=== PATIENT | female | born 1990 | race Caucasian/White ===

== ENCOUNTER → 2017-02-04 | Outpatient (CLI) | payer BC | LOC: MW.CHOBGYN 11:32 | PROVIDERS: ATTEND Advanced Practice Midwife | DX: Z34.90 Encounter for supervision of normal pregnancy, unspecified, unspecified trimester (principal) | CPT/HCPCS: 36415; 80305; 82105; 82677; 84702; 86336 ==

== ENCOUNTER → 2017-04-02 | Outpatient (CLI) | payer BC | LOC: MW.CHOBGYN 09:00 | PROVIDERS: ATTEND Advanced Practice Midwife | DX: Z34.90 Encounter for supervision of normal pregnancy, unspecified, unspecified trimester (principal) | CPT/HCPCS: 36415; 82950; 85027; 86850 ==

== ENCOUNTER → 2017-04-06 | Outpatient (CLI) | payer BC | LOC: MW.CHOBGYN 08:18 | PROVIDERS: ATTEND Advanced Practice Midwife | DX: O99.810 Abnormal glucose complicating pregnancy (principal) | CPT/HCPCS: 36415; 82951 ==

== ENCOUNTER 2017-06-27 18:52 | Inpatient (IN) | payer BC ==
[2017-06-27] MEDS ORDERED: Methylergonovine 0.2 MG/1 ML Amp IM PRN (21:48)
[2017-06-27] MEDS ORDERED: Sodium Chloride 0.9% 10 ML Syringe FLUSH PRN (21:48)
[2017-06-27] MEDS ORDERED: Sodium Chloride 0.9% 2.5 ML Syringe FLUSH PRN (21:48)
[2017-06-27] MEDS ORDERED: Lidocaine 1% 50 ML MDV INJECT PRN (21:48)
[2017-06-27] MEDS ORDERED: Terbutaline 1 MG/ML SDV SUBCUT PRN (21:48)
[2017-06-27] MEDS ORDERED: Misoprostol 200 MCG Tab PO PRN (21:48)
[2017-06-27] MEDS ORDERED: Water For Irrigation,Sterile 1,000 ML Container IRR PRN (21:48)
[2017-06-27] MEDS ORDERED: Butorphanol 1 MG/ML SDV IVPUSH PRN (21:48)
[2017-06-27] MEDS ORDERED: Carboprost Tromethamine 250 MCG/1 ML Amp IM PRN (21:48)
[2017-06-27] MEDS ORDERED: Nalbuphine 10 MG/1 ML Vial IVPUSH PRN (21:48)
[2017-06-27] MEDS ORDERED: Oxytocin/Lactated Ringers 30 UNIT/500 ML BAG IV SCH ×2 (22:00)
[2017-06-27] MEDS ORDERED: Lactated Ringers 1,000 ML IV SCH (22:00)
--- NOTE | 2017-06-28 01:28 | PCM.LDHP ---
L&D History of Present Illness - General Date of Service: 06/28/17 Admit Problem/Dx: Patient Status Order with Admit Dx/Problem 06/27/17 21:49 Patient Status [ADT] Routine Admission Diagnosis/Problem Admission Diagnosis/Problem 06/28/17 01:23 26 yo EDC 07/02/17 39 3/7wks, A+, RI, GBS neg, PCN and Latex allergies. For active labor Source of Information: Patient History Limitations: Reports: No Limitations - History of Present Illness Improves with: Reports: None Worsens with: Reports: None Associated Symptoms: Reports: N - Related Data Allergies/Adverse Reactions: Allergies Allergy/AdvReac Type Severity Reaction Status Date / Time latex Allergy Itching Verified 05/19/17 09:23 Penicillins Allergy Hives Verified 05/19/17 09:23 Past Medical History - Past Health History Medical/Surgical History: Denies Medical/Surgical History [employer] History: Reports: , Spontaneous Social & Family History - Family History Family Medical History: Noncontributory - Tobacco Use Smoking Status *Q: Never Smoker Second Hand Smoke Exposure: No - Caffeine Use Caffeine Use: Reports: Coffee - Recreational Drug Use Recreational Drug Use: No H&P Review of Systems - Review of Systems: Review Of Systems: See Below General: Reports: No Symptoms HEENT: Reports: No Symptoms Pulmonary: Reports: No Symptoms Cardiovascular: Reports: No Symptoms Gastrointestinal: Reports: No Symptoms Genitourinary: Reports: No Symptoms Musculoskeletal: Reports: No Symptoms Skin: Reports: No Symptoms Psychiatric: Reports: No Symptoms Neurological: Reports: No Symptoms Hematologic/Lymphatic: Reports: No Symptoms Immunologic: Reports: No Symptoms L&D Exam - Exam Exam: See Below - Vital Signs Weight: 106.141 kg - Exam General: Alert, Cooperative HEENT: Hearing Intact Lungs: Normal Respiratory Effort GI/Abdominal Exam: Soft, Non-Tender, No Organomegaly, No Distention Rectal Exam: Deferred Genitourinary: Cervical dilitation Back Exam: Full Range of Motion Extremities: Normal Range of Motion, Non-Tender, No Pedal Edema, Normal Capillary Refill Skin: Warm, Dry, Intact Neurological: Cranial Nerves Intact Psychiatric: Alert, Normal Affect, Normal Mood - Patient Data Lab Results Last 24 hrs: Laboratory Results - last 24 hr 06/27/17 06/27/17 06/27/17 Range/Units 22:15 22:15 22:17 WBC 12.33 H (4.0-11.0) K/uL RBC 4.48 (4.30-5.90) M/uL Hgb 12.7 (12.0-16.0) g/dL Hct 38.1 (36.0-46.0) % MCV 85.0 (80.0-98.0) fL MCH 28.3 (27.0-32.0) pg MCHC 33.3 (31.0-37.0) g/dL RDW Std Deviation 41.5 (28.0-62.0) fl RDW Coeff of Robert 14 (11.0-15.0) % Plt Count 209 (150-400) K/uL MPV 11.70 (7.40-12.00) fL Nucleated RBC % 0.0 /100WBC Nucleated RBCs # 0 K/uL POC Glucose 77 (60-110) mg/dL Blood Type A POSITIVE Antibody Screen NEGATIVE Result Diagrams: 06/27/17 22:15 - Problem List (1) Supervision of normal IUP (intrauterine ) in primigravida SNOMED Code(s): 32121374, 515553110, 643526223, 252210430 ICD Code: Z34.00 - ENCNTR FOR SUPRVSN OF NORMAL FIRST , UNSP TRIMESTER Status: Acute Priority: High Current Visit: Yes Qualifiers: Trimester: third trimester Qualified Code(s): Z34.03 - Encounter for supervision of normal first , third trimester (2) Diabetes in SNOMED Code(s): 917077500 ICD Code: O24.919 - UNSP DIABETES MELLITUS IN , UNSPECIFIED TRIMESTER Status: Acute Priority: High Current Visit: Yes Qualifiers: Diabetes in type: gestational Gestational diabetes mellitus control: oral hypoglycemic-controlled Trimester: third trimester Qualified Code(s): O24.415 - Gestational diabetes mellitus in , controlled by oral hypoglycemic drugs Problem List Initiated/Reviewed/Updated: Yes Orders Last 24hrs: Active Orders 24 hr Category Date Time Status Patient Status [ADT] Routine ADT 06/27/17 21:49 Active Bedrest Bathroom Privileges [RC] ASDIRECTED Care 06/27/17 21:49 Active Communication Order [RC] ASDIRECTED Care 06/27/17 21:49 Active Communication Order [RC] ASDIRECTED Care 06/27/17 21:49 Active Communication Order [RC] ASDIRECTED Care 06/27/17 21:49 Active Heart Tones [RC] CONTINUOUS Care 06/27/17 21:49 Active Non Stress Test [RC] PER UNIT ROUTINE Care 06/27/17 21:49 Active May Shower [RC] ASDIRECTED Care 06/27/17 21:49 Active Notify Provider [RC] PRN Care 06/27/17 21:49 Active Notify Provider [RC] PRN Care 06/27/17 21:49 Active Notify Provider [RC] PRN Care 06/27/17 21:49 Active Notify Provider [RC] STAT Care 06/27/17 21:49 Active Oxygen Therapy [RC] ASDIRECTED Care 06/27/17 21:49 Active Up ad Leonie [RC] ASDIRECTED Care 06/27/17 21:49 Active Vaginal Exam [RC] PRN Care 06/27/17 21:49 Active Vaginal Exam [RC] PRN Care 06/27/17 21:49 Active Vital Signs [RC] PER UNIT ROUTINE Care 06/27/17 21:49 Active Vital Signs [RC] PER UNIT ROUTINE Care 06/27/17 21:49 Active Butorphanol [Stadol] Med 06/27/17 21:48 Active 1 mg IVPUSH Q1H PRN Carboprost Tromethamine [Hemabate DS] Med 06/27/17 21:48 Active 250 mcg IM ASDIRECTED PRN Lactated Ringers [Ringers, Lactated] 1,000 ml Med 06/27/17 22:00 Active IV ASDIRECTED Lidocaine 1% [Xylocaine 1%] Med 06/27/17 21:48 Active 50 ml INJECT .ONCE PRN Methylergonovine [Methergine] Med 06/27/17 21:48 Active 0.2 mg IM ASDIRECTED PRN Misoprostol [Cytotec] Med 06/27/17 21:48 Active 200 mcg PO .ONCE PRN Nalbuphine [Nubain] Med 06/27/17 21:48 Active 10 mg IVPUSH ASDIRECTED PRN Oxytocin/Lactated Ringers [Pitocin in LR 30 Units/500 Med 06/27/17 22:00 Active ML] 30 unit in 500 ml IV TITRATE Sodium Chloride 0.9% [Saline Flush] Med 06/27/17 21:48 Active 10 ml FLUSH ASDIRECTED PRN Sodium Chloride 0.9% [Saline Flush] Med 06/27/17 21:48 Active 2.5 ml FLUSH ASDIRECTED PRN Terbutaline [Brethine] Med 06/27/17 21:48 Active 0.25 mg SUBCUT ASDIRECTED PRN Water For Irrigation,Sterile [Sterile Water for Med 06/27/17 21:48 Active Irrigation] 1,000 ml IRR ASDIRECTED PRN Scalp Electrode [WOMSER] Per Unit Routine Oth 06/27/17 21:49 Ordered Medication Administration Instruction [OM.PC] Q3H Oth 06/27/17 22:00 Ordered Peripheral IV Insertion Adult [OM.PC] Routine Oth 06/27/17 21:49 Ordered Resuscitation Status Routine Resus Stat 06/27/17 21:48 Ordered Medication Orders Butorphanol Tartrate (Stadol) 1 mg IVPUSH Q1H PRN PRN Reason: Pain Carboprost Tromethamine (Hemabate Ds) 250 mcg IM ASDIRECTED PRN PRN Reason: Post Hemorrhage Lactated Ringer's (Ringers, Lactated) 1,000 mls @ 150 mls/hr IV ASDIRECTED BETITO Oxytocin/Lactated Ringer's (Pitocin In Lr 30 Units/500 Ml) 30 unit in 500 mls @ 2 mls/hr IV TITRATE BETITO; 2 MUNITS/MIN PRN Reason: Protocol Lidocaine HCl (Xylocaine 1%) 50 ml INJECT .ONCE PRN PRN Reason: Laceration repair Methylergonovine Maleate (Methergine) 0.2 mg IM ASDIRECTED PRN PRN Reason: Post Hemorrhage Misoprostol (Cytotec) 200 mcg PO .ONCE PRN PRN Reason: Post Hemorrhage Nalbuphine HCl (Nubain) 10 mg IVPUSH ASDIRECTED PRN PRN Reason: Pain (severe 7-10) Stop: 06/29/17 21:49 Sodium Chloride (Saline Flush) 10 ml FLUSH ASDIRECTED PRN PRN Reason: Keep Vein Open Sodium Chloride (Saline Flush) 2.5 ml FLUSH ASDIRECTED PRN PRN Reason: Keep Vein Open Sterile Water (Sterile Water For Irrigation) 1,000 ml IRR ASDIRECTED PRN PRN Reason: delivery Terbutaline Sulfate (Brethine) 0.25 mg SUBCUT ASDIRECTED PRN PRN Reason: Tacysystole Assessment/Plan Comment:: Labor A: 26 yo EDC 07/02/17 39 3/7wks, A+, RI, GBS neg, PCN and Latex allergies. For active labor P: Admit, routine labor plan, epidural prn, anticipate
--- NOTE | 2017-06-28 12:38 | PCM.DEL ---
L & D Note - General Info Date of Service: 06/28/17 Mother's Due Date: 07/02/17 - Delivery Note Labor: Spontaneous Delivery Outcome: Livebirth Infant Delivery Method: Spontaneous Vaginal Delivery Infant Delivery Mode: Spontaneous Presentation: Vertex Nuchal Cord: None (true knot in cord, loose) Anesthesia Type: None Amniotic Fluid Description: Clear Episiotomy Type: None Laceration: None Placenta: Intact, Spontaneous Cord: 3 Vessels Estimated Blood Loss: 150 Resuscitation Needed: No : Stimulated Score 1 min: 8 Score 5 min: 9 Second Stage Interventions: Reports: Pushing Effectively Delivery Comments (Free Text/Narrative):: of viable male delivered by RN Wendi Oliva. Head delivered, nuchle x1 reduced over head, shoulders and body followed easily. Infant to mother abdomen with RN at for evaluation. I arrived soon after delivery. Pitocin to IVF. Cord clamp (not pulsing) x2 and cut by FOB. Placenta delivered grossly intact. True knot noted on cord. Inspection noted intact perineum. APGARS 8/9, EBL 100cc. Wt: pending bonding. Left in stable condition working on breast feeding. - General Info Date of Service: 06/28/17 Admission Dx/Problem (Free Text): Patient Status Order with Admit Dx/Problem 06/27/17 21:49 Patient Status [ADT] Routine Admission Diagnosis/Problem Admission Diagnosis/Problem 06/28/17 01:23 26 yo EDC 07/02/17 39 3/7wks, A+, RI, GBS neg, PCN and Latex allergies. For active labor Functional Status: Reports: Pain Controlled, Tolerating Diet - Review of Systems General: Reports: No Symptoms HEENT: Reports: No Symptoms Pulmonary: Reports: No Symptoms Cardiovascular: Reports: No Symptoms Gastrointestinal: Reports: No Symptoms Genitourinary: Reports: No Symptoms Musculoskeletal: Reports: No Symptoms Skin: Reports: No Symptoms Neurological: Reports: No Symptoms Psychiatric: Reports: No Symptoms - Patient Data Weight - Most Recent: 106.141 kg Lab Results Last 24 Hours: Laboratory Results - last 24 hr 06/27/17 06/27/17 06/27/17 Range/Units 22:15 22:15 22:17 WBC 12.33 H (4.0-11.0) K/uL RBC 4.48 (4.30-5.90) M/uL Hgb 12.7 (12.0-16.0) g/dL Hct 38.1 (36.0-46.0) % MCV 85.0 (80.0-98.0) fL MCH 28.3 (27.0-32.0) pg MCHC 33.3 (31.0-37.0) g/dL RDW Std Deviation 41.5 (28.0-62.0) fl RDW Coeff of Robert 14 (11.0-15.0) % Plt Count 209 (150-400) K/uL MPV 11.70 (7.40-12.00) fL Nucleated RBC % 0.0 /100WBC Nucleated RBCs # 0 K/uL POC Glucose 77 (60-110) mg/dL Blood Type A POSITIVE Antibody Screen NEGATIVE Med Orders - Current: Current Medications Butorphanol Tartrate (Stadol) 1 mg IVPUSH Q1H PRN PRN Reason: Pain Last Admin: 06/28/17 11:05 Dose: 1 mg Carboprost Tromethamine (Hemabate Ds) 250 mcg IM ASDIRECTED PRN PRN Reason: Post Hemorrhage Lactated Ringer's (Ringers, Lactated) 1,000 mls @ 150 mls/hr IV ASDIRECTED BETITO Oxytocin/Lactated Ringer's (Pitocin In Lr 30 Units/500 Ml) 30 unit in 500 mls @ 2 mls/hr IV TITRATE BETITO; 2 MUNITS/MIN PRN Reason: Protocol Last Titration: 06/28/17 11:38 Dose: 2 munits/min, 2 mls/hr Lidocaine HCl (Xylocaine 1%) 50 ml INJECT .ONCE PRN PRN Reason: Laceration repair Methylergonovine Maleate (Methergine) 0.2 mg IM ASDIRECTED PRN PRN Reason: Post Hemorrhage Misoprostol (Cytotec) 200 mcg PO .ONCE PRN PRN Reason: Post Hemorrhage Nalbuphine HCl (Nubain) 10 mg IVPUSH ASDIRECTED PRN PRN Reason: Pain (severe 7-10) Stop: 06/29/17 21:49 Sodium Chloride (Saline Flush) 10 ml FLUSH ASDIRECTED PRN PRN Reason: Keep Vein Open Sodium Chloride (Saline Flush) 2.5 ml FLUSH ASDIRECTED PRN PRN Reason: Keep Vein Open Sterile Water (Sterile Water For Irrigation) 1,000 ml IRR ASDIRECTED PRN PRN Reason: delivery Terbutaline Sulfate (Brethine) 0.25 mg SUBCUT ASDIRECTED PRN PRN Reason: Tacysystole Discontinued Medications Oxytocin/Lactated Ringer's (Pitocin In Lr 30 Units/500 Ml) 30 unit in 500 mls @ 999 mls/hr IV ASDIRECTED BETITO PRN Reason: 999 MUNITS/MIN Stop: 06/27/17 22:31 - Exam General: Alert, Oriented, Cooperative, No Acute Distress Lungs: Normal Respiratory Effort GI/Abdominal Exam: Soft, Non-Tender, No Organomegaly, No Distention, No Abnormal Bruit (fundus firm) (Female) Exam: Normal External Exam, Normal Bimanual Exam, Vaginal Bleeding Back Exam: Full Range of Motion Extremities: Normal Range of Motion, Non-Tender, No Pedal Edema, Normal Capillary Refill Skin: Warm, Dry, Intact Neurological: No New Focal Deficit, Normal Speech, Normal Tone Psy/Mental Status: Alert, Normal Affect, Normal Mood - Problem List & Annotations (1) Supervision of normal IUP (intrauterine ) in primigravida SNOMED Code(s): 17881381, 219255570, 402685954, 184400614 Code(s): Z34.00 - ENCNTR FOR SUPRVSN OF NORMAL FIRST , UNSP TRIMESTER Status: Acute Priority: High Current Visit: Yes Qualifiers: Trimester: third trimester Qualified Code(s): Z34.03 - Encounter for supervision of normal first , third trimester (2) Diabetes in SNOMED Code(s): 523020837 Code(s): O24.919 - UNSP DIABETES MELLITUS IN , UNSPECIFIED TRIMESTER Status: Acute Priority: High Current Visit: Yes Qualifiers: Diabetes in type: gestational Gestational diabetes mellitus control: oral hypoglycemic-controlled Trimester: third trimester Qualified Code(s): O24.415 - Gestational diabetes mellitus in , controlled by oral hypoglycemic drugs (3) (normal spontaneous vaginal delivery) SNOMED Code(s): 55863294 Code(s): O80 - ENCOUNTER FOR FULL-TERM UNCOMPLICATED DELIVERY Status: Acute Priority: High Current Visit: Yes - Problem List Review Problem List Initiated/Reviewed/Updated: Yes - Assessment Assessment:: of viable male over intact perineum. Boy pink and crying, APGARS 8/9, Wt pending. Intact perineum, EBL 100cc. Stable. Bonding well with - Plan Plan:: Labor A: 26 yo EDC 07/02/17 39 3/7wks, A+, RI, GBS neg, PCN and Latex allergies. For active labor P: Admit, routine labor plan, epidural prn, anticipate Delivered Routine pp plan of care
[2017-06-28] MEDS ORDERED: Lanolin 100% Cream 7 GM Tube TOP PRN (12:41)
[2017-06-28] MEDS ORDERED: Ibuprofen 400 MG Tab PO PRN (12:41)
[2017-06-28] MEDS ORDERED: Ibuprofen 800 MG Tab PO PRN (12:41)
[2017-06-28] MEDS ORDERED: Acetaminophen 500 MG Tab PO PRN ×2 (12:41)
[2017-06-28] MEDS ORDERED: Docusate Sodium 100 MG Cap PO PRN (12:41)
[2017-06-28] MEDS ORDERED: Witch Hazel Medicated Pads 40/Jar TOP PRN (12:41)
[2017-06-28] MEDS ORDERED: oxyCODONE 5 MG Tab PO PRN (12:41)
[2017-06-28] MEDS ORDERED: Benzocaine/Menthol 20%-0.5% Spray 78 GM Cannister TOP PRN (12:41)
[2017-06-28] MEDS ORDERED: Bisacodyl 10 MG Supp RECTAL PRN (12:41)
--- NOTE | 2017-06-29 07:55 | PCM.DCSUM1 ---
Discharge Summary - Hospital Course Free Text/Narrative:: Discharge home with . Follow up 6 weeks for post or sooner if needed. - Discharge Data Discharge Date: 06/29/17 Discharge Disposition: Home, Self-Care 01 Condition: Good - Discharge Diagnosis/Problem(s) (1) Supervision of normal IUP (intrauterine ) in primigravida SNOMED Code(s): 41103292, 264683665, 254807620, 183546347 ICD Code: Z34.00 - ENCNTR FOR SUPRVSN OF NORMAL FIRST , UNSP TRIMESTER Status: Acute Priority: High Current Visit: Yes Qualifiers: Trimester: third trimester Qualified Code(s): Z34.03 - Encounter for supervision of normal first , third trimester (2) Diabetes in SNOMED Code(s): 094773804 ICD Code: O24.919 - UNSP DIABETES MELLITUS IN , UNSPECIFIED TRIMESTER Status: Acute Priority: High Current Visit: Yes Qualifiers: Diabetes in type: gestational Gestational diabetes mellitus control: oral hypoglycemic-controlled Trimester: third trimester Qualified Code(s): O24.415 - Gestational diabetes mellitus in , controlled by oral hypoglycemic drugs (3) (normal spontaneous vaginal delivery) SNOMED Code(s): 68429207 ICD Code: O80 - ENCOUNTER FOR FULL-TERM UNCOMPLICATED DELIVERY Status: Acute Priority: High Current Visit: Yes - Patient Instructions Diet: Usual Diet as Tolerated Activity: As Tolerated, Rest and Relax Today Driving: May Drive Today Showering/Bathing: May Shower Notify Provider of: Fever, Increased Pain, Swelling and Redness, Nausea and/or Vomiting Other/Special Instructions: Discharge home with . Follow up 6 weeks for post or sooner if needed. - Discharge Plan - General Info Date of Service: 06/29/17 Admission Dx/Problem (Free Text: Patient Status Order with Admit Dx/Problem 06/27/17 21:49 Patient Status [ADT] Routine Admission Diagnosis/Problem Admission Diagnosis/Problem 06/28/17 01:23 26 yo EDC 07/02/17 39 3/7wks, A+, RI, GBS neg, PCN and Latex allergies. For active labor Functional Status: Reports: Pain Controlled, Tolerating Diet, Ambulating, Urinating - Review of Systems General: Reports: No Symptoms HEENT: Reports: No Symptoms Pulmonary: Reports: No Symptoms Cardiovascular: Reports: No Symptoms Gastrointestinal: Reports: No Symptoms Genitourinary: Reports: No Symptoms Musculoskeletal: Reports: No Symptoms Skin: Reports: No Symptoms Neurological: Reports: No Symptoms Psychiatric: Reports: No Symptoms - Patient Data Vitals - Most Recent: Last Vital Signs Temp 36.2 C 06/29/17 04:19 Pulse 72 06/29/17 04:19 Resp 16 06/29/17 04:19 BP 121/63 06/29/17 04:19 Pulse Ox 97 06/29/17 04:19 Weight - Most Recent: 106.141 kg Med Orders - Current: Current Medications Acetaminophen (Tylenol Extra Strength) 500 mg PO Q4H PRN PRN Reason: Pain Acetaminophen (Tylenol Extra Strength) 1,000 mg PO Q4H PRN PRN Reason: Pain Benzocaine/Menthol (Dermoplast Pain Relief 20%-0.5% [place]) 78 gm TOP ASDIRECTED PRN PRN Reason: Perineal Comfort Measure Last Admin: 06/28/17 17:28 Dose: 1 can Bisacodyl (Dulcolax) 10 mg RECTAL .ONCE PRN PRN Reason: Constipation Docusate Sodium (Colace) 100 mg PO BID PRN PRN Reason: Constipation Emollient Ointment (Lansinoh Hpa) 0 gm TOP ASDIRECTED PRN PRN Reason: Sore Nipples Ibuprofen (Motrin) 400 mg PO Q4H PRN PRN Reason: Pain Ibuprofen (Motrin) 800 mg PO Q6H PRN PRN Reason: Pain Oxycodone HCl (Oxycodone) 5 mg PO Q2H PRN PRN Reason: Pain Witch Nevaeh (Tucks) 1 pad TOP ASDIRECTED PRN PRN Reason: comfort care Last Admin: 06/28/17 17:27 Dose: 1 tub Discontinued Medications Butorphanol Tartrate (Stadol) 1 mg IVPUSH Q1H PRN PRN Reason: Pain Last Admin: 06/28/17 11:05 Dose: 1 mg Carboprost Tromethamine (Hemabate Ds) 250 mcg IM ASDIRECTED PRN PRN Reason: Post Hemorrhage Lactated Ringer's (Ringers, Lactated) 1,000 mls @ 150 mls/hr IV ASDIRECTED BETITO Oxytocin/Lactated Ringer's (Pitocin In Lr 30 Units/500 Ml) 30 unit in 500 mls @ 999 mls/hr IV ASDIRECTED BETITO PRN Reason: 999 MUNITS/MIN Stop: 06/27/17 22:31 Oxytocin/Lactated Ringer's (Pitocin In Lr 30 Units/500 Ml) 30 unit in 500 mls @ 2 mls/hr IV TITRATE BETITO; 2 MUNITS/MIN PRN Reason: Protocol Last Titration: 06/28/17 11:38 Dose: 2 munits/min, 2 mls/hr Lidocaine HCl (Xylocaine 1%) 50 ml INJECT .ONCE PRN PRN Reason: Laceration repair Methylergonovine Maleate (Methergine) 0.2 mg IM ASDIRECTED PRN PRN Reason: Post Hemorrhage Misoprostol (Cytotec) 200 mcg PO .ONCE PRN PRN Reason: Post Hemorrhage Nalbuphine HCl (Nubain) 10 mg IVPUSH ASDIRECTED PRN PRN Reason: Pain (severe 7-10) Stop: 06/29/17 21:49 Sodium Chloride (Saline Flush) 10 ml FLUSH ASDIRECTED PRN PRN Reason: Keep Vein Open Sodium Chloride (Saline Flush) 2.5 ml FLUSH ASDIRECTED PRN PRN Reason: Keep Vein Open Sterile Water (Sterile Water For Irrigation) 1,000 ml IRR ASDIRECTED PRN PRN Reason: delivery Terbutaline Sulfate (Brethine) 0.25 mg SUBCUT ASDIRECTED PRN PRN Reason: Tacysystole - Exam General: Reports: Alert, Oriented, Cooperative, No Acute Distress Lungs: Reports: Normal Respiratory Effort GI/Abdominal Exam: Soft, Non-Tender, No Organomegaly, No Distention (Female) Exam: Vaginal Bleeding Rectal (Female) Exam: Deferred Back Exam: Reports: Full Range of Motion Extremities: Normal Range of Motion, Non-Tender Skin: Reports: Warm, Dry, Intact Wound/Incisions: Reports: Healing Well Neurological: Reports: No New Focal Deficit, Normal Speech, Normal Tone Psy/Mental Status: Reports: Alert, Normal Affect, Normal Mood *Q Meaningful Use (DIS) - VTE *Q VTE Criteria *Q: - Stroke *Q Stroke Criteria *Q: - AMI *Q AMI Criteria *Q:
--- NOTE | 2017-06-30 07:44 | PCM.DCSUM1 ---
Discharge Summary - Hospital Course Free Text/Narrative:: Discharge home today with son. Follow up 6 weeks for post or sooner if needed - Discharge Data Discharge Date: 06/30/17 Discharge Disposition: Home, Self-Care 01 Condition: Good - Discharge Diagnosis/Problem(s) (1) Supervision of normal IUP (intrauterine ) in primigravida SNOMED Code(s): 87533068, 849157351, 786485924, 156402870 ICD Code: Z34.00 - ENCNTR FOR SUPRVSN OF NORMAL FIRST , UNSP TRIMESTER Status: Acute Priority: High Current Visit: Yes Qualifiers: Trimester: third trimester Qualified Code(s): Z34.03 - Encounter for supervision of normal first , third trimester (2) Diabetes in SNOMED Code(s): 793091224 ICD Code: O24.919 - UNSP DIABETES MELLITUS IN , UNSPECIFIED TRIMESTER Status: Acute Priority: High Current Visit: Yes Qualifiers: Diabetes in type: gestational Gestational diabetes mellitus control: oral hypoglycemic-controlled Trimester: third trimester Qualified Code(s): O24.415 - Gestational diabetes mellitus in , controlled by oral hypoglycemic drugs (3) (normal spontaneous vaginal delivery) SNOMED Code(s): 36026545 ICD Code: O80 - ENCOUNTER FOR FULL-TERM UNCOMPLICATED DELIVERY Status: Acute Priority: High Current Visit: Yes - Patient Instructions Diet: Usual Diet as Tolerated Activity: As Tolerated, Rest and Relax Today Driving: May Drive Today Showering/Bathing: May Shower Notify Provider of: Fever, Increased Pain, Swelling and Redness, Nausea and/or Vomiting Other/Special Instructions: Discharge home with infant. Follow up 6 weeks for post or sooner if needed. - Discharge Plan Patient Handouts: Vaginal Delivery, Care After, Challenges and Solutions Referrals: [facility] [Outside] Madalyn Mcguire CNM [Primary Care Provider] - 08/10/17 10:45 am - General Info Date of Service: 06/30/17 Admission Dx/Problem (Free Text: Patient Status Order with Admit Dx/Problem 06/27/17 21:49 Patient Status [ADT] Routine Admission Diagnosis/Problem Admission Diagnosis/Problem 06/28/17 01:23 26 yo EDC 07/02/17 39 3/7wks, A+, RI, GBS neg, PCN and Latex allergies. For active labor Functional Status: Reports: Pain Controlled, Tolerating Diet, Ambulating, Urinating - Review of Systems General: Reports: No Symptoms HEENT: Reports: No Symptoms Pulmonary: Reports: No Symptoms Cardiovascular: Reports: No Symptoms Gastrointestinal: Reports: No Symptoms Genitourinary: Reports: No Symptoms Musculoskeletal: Reports: No Symptoms Skin: Reports: No Symptoms Neurological: Reports: No Symptoms Psychiatric: Reports: No Symptoms - Patient Data Vitals - Most Recent: Last Vital Signs Temp 36.9 C 06/30/17 05:00 Pulse 68 06/30/17 05:00 Resp 14 06/30/17 05:00 BP 100/60 06/30/17 05:00 Pulse Ox 100 06/30/17 05:00 Weight - Most Recent: 106.141 kg Med Orders - Current: Current Medications Acetaminophen (Tylenol Extra Strength) 500 mg PO Q4H PRN PRN Reason: Pain Acetaminophen (Tylenol Extra Strength) 1,000 mg PO Q4H PRN PRN Reason: Pain Benzocaine/Menthol (Dermoplast Pain Relief 20%-0.5% [place]) 78 gm TOP ASDIRECTED PRN PRN Reason: Perineal Comfort Measure Last Admin: 06/28/17 17:28 Dose: 1 can Bisacodyl (Dulcolax) 10 mg RECTAL .ONCE PRN PRN Reason: Constipation Docusate Sodium (Colace) 100 mg PO BID PRN PRN Reason: Constipation Emollient Ointment (Lansinoh Hpa) 0 gm TOP ASDIRECTED PRN PRN Reason: Sore Nipples Ibuprofen (Motrin) 400 mg PO Q4H PRN PRN Reason: Pain Ibuprofen (Motrin) 800 mg PO Q6H PRN PRN Reason: Pain Oxycodone HCl (Oxycodone) 5 mg PO Q2H PRN PRN Reason: Pain Witch Nevaeh (Tucks) 1 pad TOP ASDIRECTED PRN PRN Reason: comfort care Last Admin: 06/28/17 17:27 Dose: 1 tub Discontinued Medications Butorphanol Tartrate (Stadol) 1 mg IVPUSH Q1H PRN PRN Reason: Pain Last Admin: 06/28/17 11:05 Dose: 1 mg Carboprost Tromethamine (Hemabate Ds) 250 mcg IM ASDIRECTED PRN PRN Reason: Post Hemorrhage Lactated Ringer's (Ringers, Lactated) 1,000 mls @ 150 mls/hr IV ASDIRECTED BETITO Oxytocin/Lactated Ringer's (Pitocin In Lr 30 Units/500 Ml) 30 unit in 500 mls @ 999 mls/hr IV ASDIRECTED BETITO PRN Reason: 999 MUNITS/MIN Stop: 06/27/17 22:31 Oxytocin/Lactated Ringer's (Pitocin In Lr 30 Units/500 Ml) 30 unit in 500 mls @ 2 mls/hr IV TITRATE BETITO; 2 MUNITS/MIN PRN Reason: Protocol Last Titration: 06/28/17 11:38 Dose: 2 munits/min, 2 mls/hr Lidocaine HCl (Xylocaine 1%) 50 ml INJECT .ONCE PRN PRN Reason: Laceration repair Methylergonovine Maleate (Methergine) 0.2 mg IM ASDIRECTED PRN PRN Reason: Post Hemorrhage Misoprostol (Cytotec) 200 mcg PO .ONCE PRN PRN Reason: Post Hemorrhage Nalbuphine HCl (Nubain) 10 mg IVPUSH ASDIRECTED PRN PRN Reason: Pain (severe 7-10) Stop: 06/29/17 21:49 Sodium Chloride (Saline Flush) 10 ml FLUSH ASDIRECTED PRN PRN Reason: Keep Vein Open Sodium Chloride (Saline Flush) 2.5 ml FLUSH ASDIRECTED PRN PRN Reason: Keep Vein Open Sterile Water (Sterile Water For Irrigation) 1,000 ml IRR ASDIRECTED PRN PRN Reason: delivery Terbutaline Sulfate (Brethine) 0.25 mg SUBCUT ASDIRECTED PRN PRN Reason: Tacysystole - Exam General: Reports: Alert, Oriented, Cooperative, No Acute Distress Lungs: Reports: Normal Respiratory Effort GI/Abdominal Exam: Soft, Non-Tender, No Organomegaly, No Distention, No Abnormal Bruit (Female) Exam: Vaginal Bleeding Rectal (Female) Exam: Deferred Back Exam: Reports: Full Range of Motion Extremities: Normal Range of Motion, Non-Tender, No Pedal Edema, Normal Capillary Refill Skin: Reports: Warm, Dry, Intact Wound/Incisions: Reports: Healing Well Neurological: Reports: No New Focal Deficit, Normal Gait, Normal Speech, Normal Tone Psy/Mental Status: Reports: Alert, Normal Affect, Normal Mood *Q Meaningful Use (DIS) - VTE *Q VTE Criteria *Q: - Stroke *Q Stroke Criteria *Q: - AMI *Q AMI Criteria *Q:
[2017-06-30 08:51] VITALS: BP 118/70
== END 2017-06-30 13:05 | disposition home or self-care (01) | DRG 560 ==
LOC: MW.OBCHECK 18:52 → MW.OB 18:53 → MW.OBCHECK 21:49 → MW.OB 23:44 → OBSVTOIN 06-28 11:57 → MW.OB 06-28 16:19
PROVIDERS: ADMIT Obstetrics & Gynecology; ATTEND Obstetrics & Gynecology
PROC: 10E0XZZ Delivery of Products of Conception, External Approach (ICD-10-PCS; principal; 2017-06-28)
DX: O24.425 Gestational diabetes mellitus in childbirth, controlled by oral hypoglycemic drugs (principal); O69.1XX0 Labor and delivery complicated by cord around neck, with compression, not applicable or unspecified; Z3A.39 39 weeks gestation of pregnancy; Z37.0 Single live birth; Z91.040 Latex allergy status; Z88.0 Allergy status to penicillin
CPT/HCPCS: 36415; 59025; 82962; 85027; 86850; 86900; 86901; A9270-GY; J0595

== ENCOUNTER 2017-07-27 21:33 | Emergency (ER) | payer BC ==
[2017-07-27] MEDS ORDERED: Sodium Chloride 0.9% 1,000 ML IV ONE (21:35)
[2017-07-27] MEDS ORDERED: Ondansetron 4 MG/2 ML SDV IVPUSH ONE (21:36)
[2017-07-27] MEDS ORDERED: Morphine 4 MG/ML Syringe IVPUSH ONE (21:36)
--- NOTE | 2017-07-27 21:46 | EDM.PDOC ---
ED HPI GENERAL MEDICAL PROBLEM - General Stated Complaint: SHORTNESS OF BREATH/ABDOMINAL PAIN Time Seen by Provider: 07/27/17 21:37 Source of Information: Reports: Patient - History of Present Illness INITIAL COMMENTS - FREE TEXT/NARRATIVE: HISTORY AND PHYSICAL: History of present illness: Patient is a 26-year-old female who presents to the emergency room today with complaints of bilateral flank pain, generalized abdominal pain, dyspnea, nausea 3 hours prior to arrival. Patient reports earlier this morning she felt fine and had no concerns of illness. Reports that she did have a meal which consisted of beans and meat, pain started shortly after. Denies any dysuria, fever, chills. Patient is 4 weeks , vaginal delivery with no complications. 3 para 1. Currently breast-feeding. Reports that she has had minimal vaginal bleeding since the delivery. Denies any other previous health problems or illnesses. Review of systems: As per history of present illness and below otherwise all systems reviewed and negative. Past medical history: As per history of present illness and as reviewed below otherwise noncontributory. Surgical history: As per history of present illness and as reviewed below otherwise noncontributory. Social history: No reported history of drug or alcohol abuse. Family history: As per history of present illness and as reviewed below otherwise noncontributory. Physical exam: Gen.: Nontoxic appearing 26-year-old female who appears in mild discomfort. HEENT: Atraumatic, normocephalic, pupils reactive, negative for conjunctival pallor or scleral icterus, mucous membranes moist, throat clear, neck supple, nontender, trachea midline. Lungs: Clear to auscultation, breath sounds equal bilaterally, chest nontender. Heart: S1S2, regular, negative for clicks, rubs, or JVD. Abdomen: Soft, nondistended, nontender. Negative for masses or hepatosplenomegaly. Positive for costovertebral tenderness bilaterally. Pelvis: Stable nontender. Genitourinary: Deferred. Rectal: Deferred. Extremities: Atraumatic, negative for cords or calf pain. Moves all extremities herself. Neurovascular unremarkable. Neuro: Awake, alert, oriented. Cranial nerves II through XII unremarkable. Cerebellum unremarkable. Motor and sensory unremarkable throughout. Exam nonfocal. Skin: Appears pale. 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 Onset: Today, Sudden - Related Data Allergies Allergy/AdvReac Type Severity Reaction Status Date / Time latex Allergy Itching Verified 07/27/17 21:48 Penicillins Allergy Hives Verified 07/27/17 21:48 Home Meds: Home Meds . 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 Social & Family History - Family History Family Medical History: Noncontributory - Tobacco Use Smoking Status *Q: Never Smoker Second Hand Smoke Exposure: No - Caffeine Use Caffeine Use: Reports: Coffee - Recreational Drug Use Recreational Drug Use: No ED ROS GENERAL - Review of Systems Review Of Systems: See Below ED EXAM, GENERAL - Physical Exam Exam: See Below (See dictation) EKG INTERPRETATION EKG Date: 07/27/17 Time: 21:37 Rhythm: NSR Rate (Beats/Min): 69 Comparison: NA - No Prior EKG Course - Vital Signs Text/Narrative:: I discussed with patient cholelithiasis with biliary colic and the need for pain medication patient refuses she'll follow-up with her private doctor 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 Tylenol as directed diet as discussed Last Recorded V/S: Last Vital Signs Temp 35.7 C 07/27/17 22:05 Pulse 72 07/27/17 22:05 Resp 22 H 07/27/17 22:05 BP 138/91 H 07/27/17 22:05 Pulse Ox 99 07/27/17 22:05 - Orders/Labs/Meds Orders: Active Orders 24 hr Category Date Time Status EKG Documentation Completion [RC] STAT Care 07/27/17 21:36 Active Abdomen Pelvis wo Cont [CT] Stat Exams 07/27/17 21:36 Taken Chest 2V [CR] Stat Exams 07/27/17 21:36 Taken UA W/MICROSCOPIC [URIN] Stat Lab 07/27/17 21:36 Uncollected Labs: Laboratory Tests 07/27/17 07/27/17 07/27/17 Range/Units 21:40 21:40 21:40 WBC 11.48 H (4.0-11.0) K/uL RBC 5.14 (4.30-5.90) M/uL Hgb 15.0 (12.0-16.0) g/dL Hct 43.2 (36.0-46.0) % MCV 84.0 (80.0-98.0) fL MCH 29.2 (27.0-32.0) pg MCHC 34.7 (31.0-37.0) g/dL RDW Std Deviation 39.2 (28.0-62.0) fl RDW Coeff of Robert 13 (11.0-15.0) % Plt Count 229 (150-400) K/uL MPV 11.70 (7.40-12.00) fL Neut % (Auto) 57.1 (48.0-80.0) % Lymph % (Auto) 33.1 (16.0-40.0) % [place] % (Auto) 7.6 (0.0-15.0) % Eos % (Auto) 1.9 (0.0-7.0) % Baso % (Auto) 0.3 (0.0-1.5) % Neut # (Auto) 6.6 H (1.4-5.7) K/uL Lymph # (Auto) 3.8 H (0.6-2.4) K/uL [place] # (Auto) 0.9 H (0.0-0.8) K/uL Eos # (Auto) 0.2 (0.0-0.7) K/uL Baso # (Auto) 0.0 (0.0-0.1) K/uL Nucleated RBC % 0.0 /100WBC Nucleated RBCs # 0 K/uL D-Dimer, Quantitative 0.21 (0.0-0.52) mg/LFEU Sodium 142 (136-146) mmol/L Potassium 3.3 L (3.5-5.1) mmol/L Chloride 106 (98-110) mmol/L Carbon Dioxide 25 (21-31) mmol/L BUN 10 (6.0-23.0) mg/dL Creatinine 0.9 (0.6-1.5) mg/dL Est Cr Clr Drug Dosing 93.73 mL/min Estimated GFR (MDRD) > 60.0 ml/min Glucose 111 H (60-110) mg/dL Calcium 9.4 (8.8-10.8) mg/dL Total Bilirubin 0.4 (0.1-1.5) mg/dL AST 24 (5-40) IU/L ALT 29 (8-54) IU/L Alkaline Phosphatase 77 (40-150) B-Natriuretic Peptide (<100) PG/ML Total Protein 7.2 (6.0-8.0) g/dL Albumin 3.9 (3.5-5.0) g/dL Globulin 3.3 (2.0-3.5) g/dL Albumin/Globulin Ratio 1.2 L (1.3-2.8) Lipase (7-80) U/L 07/27/17 07/27/17 Range/Units 21:40 21:40 WBC (4.0-11.0) K/uL RBC (4.30-5.90) M/uL Hgb (12.0-16.0) g/dL Hct (36.0-46.0) % MCV (80.0-98.0) fL MCH (27.0-32.0) pg MCHC (31.0-37.0) g/dL RDW Std Deviation (28.0-62.0) fl RDW Coeff of Robert (11.0-15.0) % Plt Count (150-400) K/uL MPV (7.40-12.00) fL Neut % (Auto) (48.0-80.0) % Lymph % (Auto) (16.0-40.0) % [place] % (Auto) (0.0-15.0) % Eos % (Auto) (0.0-7.0) % Baso % (Auto) (0.0-1.5) % Neut # (Auto) (1.4-5.7) K/uL Lymph # (Auto) (0.6-2.4) K/uL [place] # (Auto) (0.0-0.8) K/uL Eos # (Auto) (0.0-0.7) K/uL Baso # (Auto) (0.0-0.1) K/uL Nucleated RBC % /100WBC Nucleated RBCs # K/uL D-Dimer, Quantitative (0.0-0.52) mg/LFEU Sodium (136-146) mmol/L Potassium (3.5-5.1) mmol/L Chloride (98-110) mmol/L Carbon Dioxide (21-31) mmol/L BUN (6.0-23.0) mg/dL Creatinine (0.6-1.5) mg/dL Est Cr Clr Drug Dosing mL/min Estimated GFR (MDRD) ml/min Glucose (60-110) mg/dL Calcium (8.8-10.8) mg/dL Total Bilirubin (0.1-1.5) mg/dL AST (5-40) IU/L ALT (8-54) IU/L Alkaline Phosphatase (40-150) B-Natriuretic Peptide < 15 (<100) PG/ML Total Protein (6.0-8.0) g/dL Albumin (3.5-5.0) g/dL Globulin (2.0-3.5) g/dL Albumin/Globulin Ratio (1.3-2.8) Lipase 30 (7-80) U/L Meds: Medications Discontinued Medications Generic Name Dose Route Start Last Admin Trade Name Freq PRN Reason Stop Dose Admin Sodium Chloride 1,000 mls @ 999 mls/hr 07/27/17 21:35 07/27/17 21:44 Normal Saline IV 07/27/17 22:35 999 mls/hr STAT ONE Administration Morphine Sulfate 4 mg 07/27/17 21:36 Morphine IVPUSH 07/27/17 21:37 ONETIME ONE Ondansetron HCl 4 mg 07/27/17 21:36 Zofran IVPUSH 07/27/17 21:37 ONETIME ONE Departure - Departure Time of Disposition: 22:56 Disposition: Home, Self-Care 01 Condition: Good Clinical Impression: Cholelithiasis, Biliary colic - Discharge Information Referrals: PCP,None [Primary Care Provider] - Additional Instructions: The following information is given to patients seen in the emergency department who are being discharged to home. This information is to outline your options for follow-up care. We provide all patients seen in our emergency department with a follow-up referral. The need for follow-up, as well as the timing and circumstances, are variable depending upon the specifics of your emergency department visit. If you don't have a primary care physician on staff, we will provide you with a referral. We always advise you to contact your personal physician following an emergency department visit to inform them of the circumstance of the visit and for follow-up with them and/or the need for any referrals to a consulting specialist. The emergency department will also refer you to a specialist when appropriate. This referral assures that you have the opportunity for followup care with a specialist. All of these measure are taken in an effort to provide you with optimal care, which includes your followup. Under all circumstances we always encourage you to contact your private physician who remains a resource for coordinating your care. When calling for followup care, please make the office aware that this follow-up is from your recent emergency room visit. If for any reason you are refused follow-up, please contact the [facility] emergency department at and asked to speak to the emergency department charge nurse. 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
[2017-07-27 22:09] LABS: CHLORIDE,CL 106 mmol/L (98-110); SODIUM,NA 142 mmol/L (136-146)
[2017-07-27 23:32] VITALS: BP 121/73
--- NOTE | 2017-07-28 10:24 | CR ---
EXAM DATE: 07/27/17 PATIENT'S AGE: 26 Patient: ELDON DOWNS Facility: [place], [place] Site . Site : 1990 Study: XRay Chest [id number] 10:09:42 PM Ordering Physician: Doctor Chaney Final Report: INDICATION: Dyspnea. TECHNIQUE: Chest radiograph 2 views COMPARISON: None FINDINGS: Cardiac silhouette mildly enlarged. Thoracic scoliosis deformity. Lungs are clear. No pleural effusion or pneumothorax. IMPRESSION: 1. Mild cardiomegaly. No focal infiltrate or congestive heart failure pattern. Dictated by Misael Mendoza MD @ 07/27/2017 10:34:43 PM Dictated by: Misael Mendoza MD @ 07/27/2017 22:34:48 (Electronic Signature) Report Signed by Proxy. [facility]
--- NOTE | 2017-07-28 10:25 | CT ---
EXAM DATE: 07/27/17 PATIENT'S AGE: 26 Patient: ELDON DOWNS Facility: [place], [place] Site . Site : 1990 Study: CT Abdomen/Pelvis [id number] 10:17:12 PM Ordering Physician: Doctor Chaney Final Report: INDICATION: POSTERIOR PAIN CHEST TECHNIQUE: CT abdomen and pelvis without contrast. COMPARISON: None FINDINGS: Lower chest: Scarring/atelectasis. Liver: Unremarkable. Spleen: Unremarkable. Pancreas: Unremarkable. Gallbladder and bile ducts: Cholelithiasis. Kidneys: 9 mm renal cyst within the upper pole of the left kidney. No kidney or ureteral stones and no hydronephrosis. Adrenal glands: Unremarkable. GI tract: Unremarkable. Appendix is normal. Vascular structures: Unremarkable. Lymph nodes: Unremarkable. Miscellaneous: Unremarkable. No free air or significant free fluid. Pelvic Organs: Unremarkable. 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 IMPRESSION: 1. No acute abnormality of the abdomen and pelvis. 2. Cholelithiasis. Dictated by Girish Silva MD @ 07/27/2017 10:48:08 PM Dictated by: Girish Silva MD @ 07/27/2017 22:48:19 (Electronic Signature) Report Signed by Proxy. [facility]
== END 2017-07-27 23:14 | disposition home or self-care (01) ==
LOC: MW.ED 21:33
DX: O99.63 Diseases of the digestive system complicating the puerperium (principal); K80.20 Calculus of gallbladder without cholecystitis without obstruction; Z88.0 Allergy status to penicillin; Z91.040 Latex allergy status
CPT/HCPCS: 36415; 71020; 74176; 80053; 83690; 83880; 85025; 85379; 93005; 96360; 99285; J7040; 99283